=== PATIENT | male | born 1970 | race Caucasian/White ===

== ENCOUNTER → 2018-07-29 | Emergency (ER) | payer BC ==
[~2018-07-29] VITALS: Ht 172.7 cm; Wt 124.7 kg
[~2018-07-29] MED LIST: CEPH-507 PO; TETANUS,DIPTH,PERTUSS P/F (BOOSTRIX) 0.5 ML VIAL IM ONE
--- NOTE | 2018-07-29 14:39 | ED Upper Extremity ---
General Chief Complaint: Upper Extremity Stated Complaint: L FINGER LAC YESTERDAY Nursing Triage Note: SKINNING DEER YESTERDAY. CUT @1.1/4 INCH TO L-INDEX FINDER. SITE HAS SEROUS- SAND DRAINAGE NOTED. STATES HE JUST WANTS IT DRESSED SO IT DOESN'T CATCH ON ANYTHING. Nursing Sepsis Screen: No Definite Risk Source: patient Exam Limitations: no limitations History of Present Illness Date Seen by Provider: Jul 29, 2018 Time Seen by Provider: 14:35 Initial Comments To ER with reports of a laceration to the right pointer finger that occurred last night while skinning a deer. Tetanus is not up-to-date. Onset: yesterday Severity: moderate Pain/Injury Location: right 2nd finger Modifying Factors: Worse With Movement Allergies and Home Medications Allergies Coded Allergies: No Known Drug Allergies (Unverified , 07/29/18) Home Medications No Active Prescriptions or Reported Meds Patient Home Medication List Home Medication List Reviewed: Yes Review of Systems Constitutional: see HPI EENTM: see HPI Respiratory: no symptoms reported Cardiovascular: no symptoms reported Genitourinary: no symptoms reported Musculoskeletal: no symptoms reported Skin: see HPI Psychiatric/Neurological: No Symptoms Reported Past Heozgaj-Jnbquu-Fihibl Hx Patient Social History Alcohol Use: Regular Use Alcohol Beverage of Choice: Beer Recreational Drug Use: No Smoking Status: Never a Smoker Recent Foreign Travel: No Contact w/Someone Who Travel: No Recent Infectious Disease Expo: No Immunizations Up To Date Tetanus Booster (TDap): Unknown Past Medical History Respiratory: No Cardiac: No Neurological: No Genitourinary: No Gastrointestinal: No Musculoskeletal: No Endocrine: No HEENT: No Cancer: No Psychosocial: No Integumentary: No Physical Exam Vital Signs Vital Signs - First Documented 07/29/18 14:24 Temp 98.6 Pulse 80 Resp 18 B/P (MAP) 149/100 (116) Pulse Ox 95 O2 Delivery Room Air Capillary Refill : Less Than 3 Seconds Height, Weight, BMI Height: 5'8.00" Weight: 275lbs. oz. 124.467532yx; BMI Method:Stated General Appearance: WD/WN, no apparent distress HEENT: PERRL/EOMI, normal ENT inspection Neck: non-tender, full range of motion Elbow/Forearm: normal inspection, non-tender Wrist: Yes normal inspection, Yes non-tender Hand: non-tender, Right (1.5 cm laceration to the radial side of the proximal phalanx right pointer finger without active bleeding. There is minimal surrounding erythema. Fully able to actively extend and flex the pointer finger. ) Neurologic/Psychiatric: alert, normal mood/affect, oriented x 3 Skin: normal color, warm/dry Progress/Results/Core Measures Results/Orders Vital Signs/I&O 07/29/18 14:24 Temp 98.6 Pulse 80 Resp 18 B/P (MAP) 149/100 (116) Pulse Ox 95 O2 Delivery Room Air Blood Pressure Mean: 116 Departure Communication (Admissions) This will be allowed to close by secondary intention Impression Primary Impression: Laceration Disposition: HOME, SELF-CARE Condition: Against Medical Advice Departure-Patient Inst. Decision time for Depature: 14:38 Referrals: NO,LOCAL PHYSICIAN (PCP/Family) Primary Care Physician Patient Instructions: Laceration Infection, Wound Care Add. Discharge Instructions: 1. Wash gently with soap and water daily. Return to ER for any concerns 3. Antibiotic as directed. All discharge instructions reviewed with patient and/ or family. Voiced understanding. Scripts Cephalexin (Keflex) 500 Mg Capsule 500 MG PO TID, #15 CAP Prov: JOANNA GARDNER APRN 07/29/18 Work/School Note: Work Release Form Date Seen in the Emergency Department: Jul 29, 2018 Return to Work: Jul 30, 2018 JOANNA GARDNER APRN Jul 29, 2018 14:39
[2018-07-29 14:53] VITALS: BP 149/100
== END | disposition home or self-care (01) ==
LOC: EDUNIT# 13:05 → ER 13:06
DX: S61.210A Laceration without foreign body of right index finger without damage to nail, initial encounter (principal); W26.8XXA Contact with other sharp object(s), not elsewhere classified, initial encounter
CPT/HCPCS: 90715; 99284